=== PATIENT | female | born 1960 | race Caucasian/White ===

== ENCOUNTER 2016-07-29 11:27 | Day surgery (SDC) | payer OTHER ==
[~2016-07-29 11:27] MED LIST: LACTATED RINGERS 1,000 ML IV.SOLN IV ONE; Lidocaine 1% 20ml (SOUTH OMNI) ONE; PROPOFOL 200 MG/20 ML VIAL IV ONE
[2016-07-29 12:59] VITALS: BP 141/90
--- NOTE | 2016-07-29 15:07 | GI Report ---
REFERRING PHYSICIAN: Dr. Jeanie Dill MANAGER TELECOM: Lanre Billings MD PROCEDURE MEDICATION: Propofol as per anesthesia. INDICATIONS: A 56-year-old who has had intermittent difficulty swallowing and gradually getting worse over the last 2 years, particularly pills and some solids. Sometimes it takes a couple of minutes but she can drink liquid and wash it down. She denies much heartburn. She does take omeprazole daily. FINDINGS: 1. Esophageal Schatzki's Ring dilated to a 51-[place]wegian and biopsied. 2. Diffuse gastritis. 3. Mild esophagitis. PROCEDURE PERFORMED: 1. Endoscopy with biopsies. 2. Esophageal dilatation. PROCEDURE: An Olympus vide endoscope was passed through the esophagus under direct visualization. She does have an esophageal Schatzki's Ring at the GE junction and mild esophagitis. Fundus, body, and antrum of the stomach with mild gastritis. Biopsy was taken for H. Pylori. She does have a few gastric polyps , fundic polyps, benign in appearance. A couple were sampled and biopsied. Duodenal bulb, first and second part of the duodenum exam was normal. A guidewire was placed in the stomach. The endoscope was removed. A 51-Savary- Jonh dilator passed without resistance. The endoscope was reintroduced. There was a little friability where the ring was stretched. We also did take biopsies of the esophageal ring. Patient tolerated the procedure well. RECOMMENDATIONS: 1. I would have her avoid cold liquids when she takes meals or pills. 2. Continue PPI before meals. 3. Elevate the head of the bed at least 3 inches. 4. Do not eat late at night. 5. Follow up with Dr. Dill. cc: Dr. Jeanie AMARO
== END 2016-07-29 13:20 | disposition home or self-care (01) ==
LOC: OPSURG 11:27
PROVIDERS: ATTEND Internal Medicine Gastroenterology
DX: K22.2 Esophageal obstruction (principal); K29.70 Gastritis, unspecified, without bleeding; K20.9 Esophagitis, unspecified
CPT/HCPCS: 43248; 88305; 88342; J2704; J7120; S1016

== ENCOUNTER 2017-06-24 12:32 | Outpatient (CLI) | payer OTHER ==
[2017-06-25 13:30] LABS: ADENOVIRUS F 40/41 Not Detected (Not Detected); ASTROVIRUS Not Detected (Not Detected); C. DIFFICILE (TOXIN A/B) Not Detected (Not Detected); CRYPTOSPORIDIUM Not Detected (Not Detected); CYCLOSPORA CAYETANENSIS Not Detected (Not Detected); ENTAMOEBA HISTOLYTICA Not Detected (Not Detected); GIARDIA LAMBLIA Not Detected (Not Detected); ROTAVIRUS A Not Detected (Not Detected); SAPOVIRUS Not Detected (Not Detected); VIBRIO CHOLERAE Not Detected (Not Detected)
== END 2017-06-24 12:40 ==
LOC: LAB 12:32
PROVIDERS: ATTEND Family Medicine
DX: A09 Infectious gastroenteritis and colitis, unspecified (principal)
CPT/HCPCS: 87507

== ENCOUNTER 2019-05-11 14:44 | Outpatient (CLI) | payer OTHER ==
[2019-05-11 15:28] LABS: BASOPHILS % 0.4 % (0.0-1.5); NEUTROPHILS # 3.6 # k/uL (1.4-7.7)
[2019-05-11 16:47] LABS: HDL 53 mg/dL (>40); eGFR (Non-African) > 60
== END 2019-05-11 14:49 ==
LOC: LAB 14:44
PROVIDERS: ATTEND Family Medicine
DX: Z13.220 Encounter for screening for lipoid disorders (principal); Z13.0 Encounter for screening for diseases of the blood and blood-forming organs and certain disorders involving the immune mechanism; Z13.29 Encounter for screening for other suspected endocrine disorder
CPT/HCPCS: 36415; 80053; 80061; 84443; 85025